=== PATIENT | male | born 1965 | race Caucasian/White ===

== ENCOUNTER 2018-08-03 18:32 | Inpatient (IN) | payer MEDICARE, MEDICAID | END 2018-08-11 16:10 | disposition home or self-care (01) | LOC: ED HOLD 08-04 02:05 → ER 18:32 → SUR 3N 08-06 13:34 | PROC: 0W9G3ZZ Drainage of Peritoneal Cavity, Percutaneous Approach (ICD-10-PCS; principal; ~2018-08-03) | DX: K70.31 Alcoholic cirrhosis of liver with ascites (principal); G93.41 Metabolic encephalopathy; N39.0 Urinary tract infection, site not specified; F10.239 Alcohol dependence with withdrawal, unspecified; E87.1 Hypo-osmolality and hyponatremia; D61.818 Other pancytopenia; D64.9 Anemia, unspecified; E87.6 Hypokalemia ==

== ENCOUNTER 2018-09-03 06:46 | Day surgery (SDC) | payer MEDICARE, MEDICAID ==
[2018-09-03] VITALS (8 sets, daily range): BP systolic 99–111; BP diastolic 55–75
[~2018-09-03] VITALS: Ht 180.3 cm; Wt 96.1 kg
[~2018-09-03 06:46] MED LIST: FOLI1TAB16 PO; FURO-150 PO; LACT10SO32 PO; MELA3TAB PO; METO25TA6 PO; PANT40TA4 PO; POTA10TA36 PO; SPIR25TA PO; thiamine tablet PO
[2018-09-03] MEDS ORDERED: albumin 25% 100mL bottle x 1 IV PRN (07:10)
[2018-09-03] MEDS ORDERED: FOLI1TAB16 PO (07:28)
[2018-09-03] MEDS ORDERED: FURO-150 PO (07:29)
[2018-09-03] MEDS ORDERED: LACT10SO PO (07:30)
[2018-09-03] MEDS ORDERED: MELA3TAB PO (07:31)
[2018-09-03] MEDS ORDERED: METO25TA6 PO (07:35)
[2018-09-03] MEDS ORDERED: PANT40TA4 PO (07:36)
[2018-09-03] MEDS ORDERED: POTA10TA19 PO (07:36)
[2018-09-03] MEDS ORDERED: SPIR25TA5 PO (07:37)
[2018-09-03] MEDS ORDERED: THIA100T66 PO (07:38)
[2018-09-03] MEDS ORDERED: LIDOcaine 1% 30ml preserv. free vial SQ ONE (09:30)
== END 2018-09-03 10:15 | disposition home or self-care (01) ==
LOC: SSTAY O 06:46
PROVIDERS: ATTEND Radiology Vascular & Interventional Radiology
DX: K70.31 Alcoholic cirrhosis of liver with ascites (principal); K70.40 Alcoholic hepatic failure without coma; K21.9 Gastro-esophageal reflux disease without esophagitis; Z79.899 Other long term (current) drug therapy; Z86.19 Personal history of other infectious and parasitic diseases; Z87.891 Personal history of nicotine dependence; Z91.030 Bee allergy status
CPT/HCPCS: 49083; C1729; J3490; P9047

== ENCOUNTER 2018-09-10 07:45 | Day surgery (SDC) | payer MEDICARE, MEDICAID ==
[2018-09-10] VITALS (7 sets, daily range): BP systolic 89–122; BP diastolic 53–78
[~2018-09-10] VITALS: Ht 180.3 cm; Wt 70.5 kg
[~2018-09-10 07:45] MED LIST changes: +LACT10SO PO; -LACT10SO32 PO; +POTA10TA19 PO; -POTA10TA36 PO; -SPIR25TA PO; +SPIR25TA5 PO; +THIA100T66 PO; -thiamine tablet PO
[2018-09-10] MEDS ORDERED: normal saline 1000ml 1,000 ML IV PRN (08:15)
[2018-09-10] MEDS ORDERED: albumin 25% 100mL bottle x 1 IV PRN (08:15)
[2018-09-10] MEDS ORDERED: LIDOcaine 1% 30ml preserv. free vial SQ ONE (09:00)
== END 2018-09-10 09:50 | disposition home or self-care (01) ==
LOC: SSTAY O 07:45
PROVIDERS: ATTEND Radiology Vascular & Interventional Radiology
DX: K70.31 Alcoholic cirrhosis of liver with ascites (principal); K72.90 Hepatic failure, unspecified without coma; K21.9 Gastro-esophageal reflux disease without esophagitis; K76.9 Liver disease, unspecified; Z79.899 Other long term (current) drug therapy; Z91.030 Bee allergy status
CPT/HCPCS: 49083; C1729; J3490; J7030; P9047

== ENCOUNTER 2018-09-20 08:00 | Day surgery (SDC) | payer MEDICARE, MEDICAID ==
[~2018-09-20] VITALS: Ht 180.3 cm; Wt 70.0 kg
[2018-09-20] VITALS (8 sets, daily range): BP systolic 97–110; BP diastolic 57–71
[~2018-09-20 08:00] MED LIST changes: +LIDOcaine 1% 30ml preserv. free vial SQ STA
[2018-09-20] MEDS ORDERED: albumin 25% 100mL bottle x 1 IV PRN (08:25)
== END 2018-09-20 10:25 | disposition home or self-care (01) ==
LOC: SSTAY O 08:00
PROVIDERS: ATTEND Radiology Vascular & Interventional Radiology
DX: R18.8 Other ascites (principal); K72.90 Hepatic failure, unspecified without coma; K21.9 Gastro-esophageal reflux disease without esophagitis; Z79.899 Other long term (current) drug therapy; Z72.89 Other problems related to lifestyle; Z91.030 Bee allergy status; Z98.890 Other specified postprocedural states
CPT/HCPCS: 49083; C1729; J3490; P9047

== ENCOUNTER 2018-09-29 07:33 | Day surgery (SDC) | payer MEDICARE, MEDICAID ==
[~2018-09-29] VITALS: Ht 180.3 cm; Wt 70.9 kg
[2018-09-29] MEDS ORDERED: normal saline 1000ml 1,000 ML IV PRN (08:00)
[2018-09-29] MEDS ORDERED: albumin 25% 100mL bottle x 1 IV PRN (08:00)
[2018-09-29 08:21] VITALS: BP 115/65
[2018-09-29 08:40] VITALS: BP 129/76
[2018-09-29 09:00] VITALS: BP 107/69
[2018-09-29 09:15] VITALS: BP 104/69
[2018-09-29 09:30] VITALS: BP 107/70
== END 2018-09-29 10:40 | disposition home or self-care (01) ==
LOC: SSTAY O 07:33
PROVIDERS: ATTEND Radiology Vascular & Interventional Radiology
DX: K70.31 Alcoholic cirrhosis of liver with ascites (principal); K72.90 Hepatic failure, unspecified without coma; K21.9 Gastro-esophageal reflux disease without esophagitis; Z86.19 Personal history of other infectious and parasitic diseases; Z79.899 Other long term (current) drug therapy; Z91.030 Bee allergy status
CPT/HCPCS: 49083; C1729; J7030; P9047

== ENCOUNTER 2018-10-06 07:41 | Day surgery (SDC) | payer MEDICARE, MEDICAID ==
[~2018-10-06] VITALS: Ht 180.3 cm; Wt 65.0 kg
[2018-10-06] VITALS (12 sets, daily range): BP systolic 90–135; BP diastolic 56–69
[2018-10-06] MEDS ORDERED: albumin 25% 100mL bottle x 1 IV PRN (08:00)
[2018-10-06] MEDS ORDERED: normal saline 1000ml 1,000 ML IV PRN (08:00)
== END 2018-10-06 11:30 | disposition home or self-care (01) ==
LOC: SSTAY O 07:41
PROVIDERS: ATTEND Radiology Vascular & Interventional Radiology
DX: K70.31 Alcoholic cirrhosis of liver with ascites (principal); K72.90 Hepatic failure, unspecified without coma; K21.9 Gastro-esophageal reflux disease without esophagitis; Z79.899 Other long term (current) drug therapy; Z86.19 Personal history of other infectious and parasitic diseases; Z91.030 Bee allergy status
CPT/HCPCS: 49083; C1729; J3490; J7030

== ENCOUNTER 2018-10-15 07:01 | Day surgery (SDC) | payer MEDICARE, MEDICAID ==
[~2018-10-15] VITALS: Ht 180.3 cm; Wt 65.3 kg
[~2018-10-15 07:01] MED LIST changes: -LIDOcaine 1% 30ml preserv. free vial SQ STA
[2018-10-15] MEDS ORDERED: normal saline 1000ml 1,000 ML IV PRN (07:30)
[2018-10-15] MEDS ORDERED: albumin 25% 100mL bottle x 1 IV PRN (07:30)
[2018-10-15 07:40] VITALS: BP 96/62
[2018-10-15 08:56] VITALS: BP 101/67
[2018-10-15 09:11] VITALS: BP 113/74
[2018-10-15 09:26] VITALS: BP 107/72
[2018-10-15 09:41] VITALS: BP 112/58
--- NOTE | 2018-10-15 10:17 | NUR ---
[address] PARACENTESIS ACCESS TO RIGHT ABDOMEN PERFORMED BY aJson MARIA DIRECTOR OF MARKET ANALYSIS. PT TOLERATED WELL WITH NO SIGNS/SYMPTOMS OF DISTRESS. 0939 CATHETER D/C'D BY JANETTE LAUGHLIN, 4X4 AND TEGADERM APPLIED-PRESSURE HELD X 5 MINUTES-SITE/DRESSING CLEAR AND FREE FROM DRAINAGE/BRUISING/SWELLING. 1001 PT REFUSED W/C-AMBULATED WITH FAMILY MEMBER AND CANE AT.
== END 2018-10-15 10:01 | disposition home or self-care (01) ==
LOC: SSTAY O 07:01
PROVIDERS: ATTEND Radiology Vascular & Interventional Radiology
DX: K70.31 Alcoholic cirrhosis of liver with ascites (principal); K72.90 Hepatic failure, unspecified without coma; K21.9 Gastro-esophageal reflux disease without esophagitis; Z72.89 Other problems related to lifestyle; Z86.19 Personal history of other infectious and parasitic diseases; Z79.899 Other long term (current) drug therapy; Z98.890 Other specified postprocedural states; Z91.030 Bee allergy status
CPT/HCPCS: 49083; C1729; J7030

== ENCOUNTER 2018-10-26 08:07 | Day surgery (SDC) | payer MEDICARE, MEDICAID ==
[~2018-10-26] VITALS: Ht 180.3 cm; Wt 66.5 kg
[~2018-10-26 08:07] MED LIST changes: +LIDOcaine 1% 30ml preserv. free vial SQ STA
[2018-10-26 08:17] VITALS: BP 110/56
[2018-10-26] MEDS ORDERED: normal saline 1000ml 1,000 ML IV PRN (08:25)
[2018-10-26] MEDS ORDERED: albumin 25% 100mL bottle x 1 IV PRN (08:25)
[2018-10-26] MEDS ORDERED: FURO-150 PO (08:34)
[2018-10-26] MEDS ORDERED: SPIR50TA5 PO (08:34)
[2018-10-26] MEDS ORDERED: POTA10TA36 PO (08:34)
[2018-10-26] MEDS ORDERED: GABA-532 PO (08:34)
[2018-10-26 08:39] VITALS: BP 96/60
[2018-10-26 08:45] VITALS: BP 100/62
[2018-10-26 09:00] VITALS: BP 115/58
[2018-10-26 09:15] VITALS: BP 117/74
[2018-10-26 09:36] VITALS: BP 110/56
== END 2018-10-26 09:25 | disposition home or self-care (01) ==
LOC: SSTAY O 08:07
PROVIDERS: ATTEND Radiology Vascular & Interventional Radiology
DX: K70.31 Alcoholic cirrhosis of liver with ascites (principal); K72.90 Hepatic failure, unspecified without coma; K21.9 Gastro-esophageal reflux disease without esophagitis; Z79.899 Other long term (current) drug therapy; Z98.890 Other specified postprocedural states
CPT/HCPCS: 49083; C1729; J3490; J7030

== ENCOUNTER 2023-03-06 07:57 | Emergency (ER) | payer MEDICARE, MEDICAID ==
[~2023-03-06] VITALS: Ht 180.3 cm; Wt 65.0 kg
[~2023-03-06 07:57] MED LIST changes: -FOLI1TAB16 PO; +FOLI1TAB27 PO; +GABA-532 PO; -LACT10SO PO; +LACT10SO3 PO; -LIDOcaine 1% 30ml preserv. free vial SQ STA; +LOP25T PO; -MELA3TAB PO; +MELA3TAB39 PO; -METO25TA6 PO; -PANT40TA4 PO; +PANT40TA54 PO; +POTA-206 PO; -POTA10TA19 PO; -SPIR25TA5 PO; +SPIR50TA5 PO
[2023-03-06 07:58] VITALS: BP 149/88; PULSE 85; RESP 16; O2SAT 98
[2023-03-06] MEDS ORDERED: erythromycin ophthalmic ointment 1gm tube RIGHTEYE ONE ×2 (09:25→09:45)
[2023-03-06] MEDS ORDERED: proparacaine 0.5% ophthalmic drops 15ml RIGHTEYE ONE ×2 (09:25→09:45)
[2023-03-06] MEDS ORDERED: HYDR-3973 PO (10:05)
[2023-03-06] MEDS ORDERED: ERYT1OIN6 RIGHTEYE (10:05)
[2023-03-06 10:41] VITALS: TEMP 98.3
== END 2023-03-06 10:54 | disposition home or self-care (01) ==
LOC: ER 07:57
DX: T15.11XA Foreign body in conjunctival sac, right eye, initial encounter (principal); I10 Essential (primary) hypertension; Z91.030 Bee allergy status; Z79.899 Other long term (current) drug therapy; X58.XXXA Exposure to other specified factors, initial encounter; Y93.89 Activity, other specified; Y92.89 Other specified places as the place of occurrence of the external cause; Y99.8 Other external cause status
CPT/HCPCS: 65205; 65220; 99284